=== PATIENT | female | born 1990 | race Caucasian/White ===

== ENCOUNTER → 2017-05-12 | Outpatient (CLI) | payer BC ==
--- NOTE | 2017-05-12 10:35 | DIAGNOSTIC IMAGING REPORT ---
SOFT TIS HEAD/NECK-THYROID HISTORY: Adenopathy ENLARGED LYMPH NODES COMPARISON: None. FINDINGS: Study confirms presence of several indeterminate nodes in the parotid or periparotid region. These measure up to 1.9 x 1.2 cm. There appears to be somewhat less prominent cherri change the left soft tissue neck. IMPRESSION: 1. Right to lesser extent left adenopathy involving the parotid as well as soft tissue regions. 2. Diagnostic considerations include cervical adenitis, although other etiologies are not excluded. 3. CT evaluation of the soft tissue neck for a more global evaluation of the neck structures is suggested. The above report was generated using voice recognition software. It may contain grammatical, syntax or spelling errors. Electronically signed by: Perez Brennan M.D. 05/12/2017 10:34 AM Dictated Date/Time: 05/12/2017 10:32 AM
== END | disposition home or self-care (01) ==
LOC: C.ULTR 08:40
PROVIDERS: ATTEND Family Medicine
DX: R59.0 Localized enlarged lymph nodes (principal)

== ENCOUNTER → 2017-05-26 | Outpatient (CLI) | payer BC ==
--- NOTE | 2017-05-26 07:35 | DIAGNOSTIC IMAGING REPORT ---
SOFT TISSUE NECK WITH HISTORY: Right-sided neck pain. Right neck lump. CERVICAL ADENITIS TECHNIQUE: Multiaxial CT images of the neck were performed following the use of intravenous contrast. COMPARISON STUDY: Neck ultrasound 05/12/2017. FINDINGS: The visualized brain parenchyma and orbits are unremarkable. The lung apices are clear. Cortical plate and screws within the right mandible. No acute fracture or dislocation within the visualized osseous structures. Mild mucosal thickening within the maxillary sinuses. The mastoid air cells are clear. The major cervical vessels enhance normally. The thyroid gland is within normal limits. The parotid and submandibular glands are symmetric. The major mucosal surfaces are intact. The epiglottis and prevertebral soft tissues are normal in thickness. There is a skin marker within the right side the neck. Deep to the skin marker is a patent superficial vein in the normal sternocleidomastoid muscle. There are few bilateral upper cervical lymph nodes, right greater than left. Dominant right jugulodigastric lymph node measures 1.4 x 0.7 cm. There is no additional 1.0 x 0.6 cm lymph node superficial to the right parotid gland. The dominant left jugulodigastric lymph node measures 9 x 8 mm. There are few right posterior cervical chain lymph nodes which are slightly more prominent compared to the left. Dominant right posterior cervical chain lymph node measures 7 x 4 mm. Dominant left posterior cervical chain lymph node measures 5 x 3 mm. IMPRESSION: Redemonstration of the bilateral upper cervical lymph nodes, right greater than left. These are similar to the prior study. All lymph nodes are subcentimeter in short axis diameter and therefore do not meet CT criteria for pathologic involvement. Clinical follow-up recommended to ensure resolution/stability of these lymph nodes. If these continue to increase in size on a clinical basis then consider fine-needle aspiration. Electronically signed by: Cesar Cortes M.D. 05/26/2017 7:33 AM Dictated Date/Time: 05/26/2017 7:25 AM
== END | disposition home or self-care (01) ==
LOC: C.CTS 06:40
PROVIDERS: ATTEND Family Medicine
DX: I88.9 Nonspecific lymphadenitis, unspecified (principal); M54.2 Cervicalgia